=== PATIENT | female | born 1980 | race Caucasian/White ===

== ENCOUNTER 2016-09-16 14:55 | Emergency (ER) | payer OTHER ==
[~2016-09-16] VITALS: Ht 162.6 cm; Wt 109.1 kg
[~2016-09-16 14:55] MED LIST: ALBU2.5V4 INHALATION; ALBU8.5H2 IH; Albuterol NEB; CALC500T9 PO; LORA10CA PO; MELA1TAB16 PO; MONT10TA20 PO; PANT40TA2 PO; PRE10 PO; SERT50TA9 PO
[2016-09-16] MEDS ORDERED: Albuterol-Ipratropium 3 mL Inhalation Solution ONE (15:00)
[2016-09-16 15:06] VITALS: BP 144/79; PULSE 96; RESP 32; O2SAT 100
--- NOTE | 2016-09-16 15:07 | ED.REPORT ---
HPI-Dyspnea / Wheezing Date of Service Sep 16, 2016 ED Provider: Dr. Pate Pt is a 36 y/o female with a history of asthma who presents to the ED c/o SOB onset 2 days ago. Pt also experiences rhinorrhea and "drainage" to her lungs which she attributes to a recent cold. Pt denies diarrhea, but vomited before arrival at the ED. She has been to the ED 8 times over the past 1.5 years for similar symptoms, noting they have become less frequent recently. She received a breathing treatment prior to interview and believes that it along with oral steroids could work as a treatment today. The pt's PCP is Dr. Russ, however she has also been seeing @ [facility] in [place]. Nursing Notes Stated Complaint: CAN'T BREATH, ASTHMA ATTACK Chief Complaint: Respiratory Distress Nursing Notes Reviewed: Yes Allergies: Coded Allergies: latex (Verified Allergy, Unknown, 03/31/16) penicillin G (Verified Allergy, Unknown, 03/31/16) Uncoded Allergies: Cillins (Allergy, Unknown, 03/04/15) Scheduled Loratadine (Claritin) 10 Mg Capsule 10 MG PO DAILY Montelukast (Singulair) 10 Mg Tablet 10 MG PO DAILY Pantoprazole DR (Protonix) 40 Mg Tablet 40 MG PO DAILY Prednisone (PredniSONE) 10 Mg Tablet 40 MG PO DAILY Prednisone (PredniSONE) 20 Mg Tablet 20 MG PO DAILY prednisone 20mg tabs /8 60mg 09/18,10 40mg 09/20,12 20mg 09/22,14,15 10mg Sertraline HCl (Sertraline) 50 Mg Tablet 50 MG PO DAILY Scheduled PRN ([Albuterol]) 2.5 MG/3 ML NEBU 2.5 MG NEB Q2 PRN PRN For Shortness of Breath Albuterol HFA (Proair HFA) 8.5 Gm Hfa.aer.ad 2 PUFFS IH Q4 PRN PRN For Wheezing Albuterol Neb Soln (Albuterol Neb Soln) 2.5 Mg/3 Ml Vial.neb 2.5 MG INHALATION Q4H PRN PRN For Shortness of Breath Calcium Carbonate (Tums) 500 Mg Tab.chew 500 MG PO PRN PRN PRN For Dyspepsia or Heartburn Melatonin/Pyridoxine (Melatonin 5 mg Tablet) 1 Each Tablet 1 EACH PO HS PRN PRN For Insomnia General Time Seen by MD: 15:06 Chief Complaint Shortness of breath Hx Obtained From: Patient Arrived By: Walk-in Sudden in Onset?: No Onset Occurred: 2 days ago Context of Onset: Asthma attack Symptom Duration: Since onset Severity: Current: No pain currently Severity: Maximum: No pain Recent Healthcare: Previous diagnosis Similar Sx Previous: Yes (claims to have been to ED for breathing problems 8 times last 1.5 years) Past Medical History Past Medical History Notes: PCP: Dr. Linton Past Medical History Psoriasis Reports: Asthma, GERD Past Surgical History Eye surgery at age 4 Family History non-contributory Smoking History Never Smoker Social History Alcohol Use: Denies alcohol use Drug Use: THC Ambulatory Status Independent Review of Systems Respiratory: Reports: Shortness of breath, Wheezing Allergy / Immune: Reports: Rhinorrhea Complete sys rev & neg: except as marked. GI: Reports: Vomiting (vomit before arrival at ED), Denies: Diarrhea Physical Exam Initial Vital Signs Vital Signs (First) Date Time Temp Pulse Resp B/P Pulse Ox O2 Delivery O2 Flow Rate FiO2 09/16/16 15:06 37.7 96 32 144/79 100 Room Air Initial VS: Reviewed, Vital signs abnormal Head / Eyes: Atraumatic, Normocephalic, PERRL Extremities: Vascular intact, Neuro intact, No swelling, No tenderness Skin: Warm, Dry, No cyanosis Neurologic: Alert, Oriented, Nonfocal Psychiatric: Mood/affect normal, Behavior normal, Normal thought content General/Constitutional: Awake, Alert, Cooperative, Not toxic appearing Distress / Hydration: Positive: Distress moderate Neck: Atraumatic, Supple, Full range of motion Respiratory / Chest: Atraumatic, No chest tenderness, No chest wall deformity Resp Distress / Stridor: Positive: Resp distress moderate Audible wheezing 5 word sentences Using accessory muscles - supraclavicular Diffuse wheezing throughout Cardiovascular: Heart rate NL, Regular rhythm, Heart sounds NL, Peripheral circulation NL Re-Eval/Medical Decision Re-Evaluation/Progress : Time of Eval: 16:07 Re-Evaluation/Progress Note: Pt rechecked. Breath sound very improved. Very mild wheezing. She feels much better and would like to go home. Counseled Regarding: Diagnosis, Lab results, Need for follow-up, When/why to return to ED Discharge & Departure Impression: Primary Impression: Asthma without status asthmaticus with acute exacerbation Ruled Out: Influenza Disposition: Home Discharge Condition All VS Reviewed: Yes Condition: Stable You turned around quickly today with 20mg of albuterol neb and 2 doses of atrovent. Your influenza screen was negative. This is likely a simple cold. You also go a shot of solu-medrol (steroid) and will need to finish a prednisone taper. DO continue all the current asthma treatments If you are worse, please return to the ER Thank you for letting us take care of you today. And thanks for getting better so quickly! prednisone 20mg tabs 09/17 60mg 09/18,10 40mg 09/20,12 20mg 09/22,14,15 10mg Referrals: Myles Russ MD (PCP) Scribe Attestation Portions of this note were transcribed by [Chris Tao and Bong Emmanuel ]. I, [ Dr. Pate. ] personally performed the history, physical exam and medical decision-making; I reviewed and confirmed the accuracy of the information in the transcribed note. Signed by: [Chris Tao] and Mayank Villa, [09/16/15] and [[id number]]. copies to: Myles Russ MD, Shawna L MD Sep 16, 2016 15:07 Chris Tao Sep 16, 2016 15:14 BONG EMMANUEL Sep 16, 2016 16:35
[2016-09-16 15:12] VITALS: PULSE 109; RESP 26; O2SAT 95
[2016-09-16] MEDS ORDERED: MethylprednisoLONE Sodium Succinate 62.5 mg/mL 2 mL Inj IM ONE (15:30)
[2016-09-16] MEDS ORDERED: Albuterol-Ipratropium 3 mL Inhalation Solution NEB ONE (15:30)
[2016-09-16] MEDS ORDERED: Albuterol 2.5 mg/3 mL Inhalation Solution NEB ONE (15:30)
[2016-09-16 15:39] VITALS: PULSE 110; RESP 22; O2SAT 93
[2016-09-16 16:23] VITALS: PULSE 117; RESP 20; O2SAT 96
[2016-09-16] MEDS ORDERED: PRE20 PO (16:31)
[2016-09-16] MEDS ORDERED: 0.9% Sodium Chloride 1,000 ML IV ONE (17:07)
[2016-09-16] MEDS ORDERED: Magnesium Sulf 2 Gm/50mL Water 2 GM in IV Premix 1 EACH IV ONE (17:10)
[2016-09-16 17:36] VITALS: RESP 16; O2SAT 89
== END 2016-09-16 17:36 | disposition home or self-care (01) ==
LOC: SED 14:55
DX: J45.901 Unspecified asthma with (acute) exacerbation (principal); R06.02 Shortness of breath; K21.9 Gastro-esophageal reflux disease without esophagitis; Z91.040 Latex allergy status; Z88.0 Allergy status to penicillin
CPT/HCPCS: 87070; 87205; 87804; 94640; 94664; 96372; 99284; J2930; J7613; J7620

== ENCOUNTER 2017-01-24 07:58 | Emergency (ER) | payer OTHER ==
[~2017-01-24] VITALS: Ht 162.6 cm; Wt 260.0 kg
[~2017-01-24 07:58] MED LIST changes: +PRE20 PO
[2017-01-24 08:07] VITALS: BP 162/112; PULSE 87; RESP 25; O2SAT 91
[2017-01-24] MEDS ORDERED: Albuterol-Ipratropium 3 mL Inhalation Solution ONE (08:12)
--- NOTE | 2017-01-24 08:24 | ED.REPORT ---
HPI-Dyspnea / Wheezing Date of Service January 24, 2017 ED Provider: Justyn Powell MD The patient is a 37 year old female w/ a hx of asthma and multiple ED visits for similar symptoms who presents to the ED due to an asthma exacerbation increasing in severity for the past 4 days. She c/o left sided thoracic pain. The pt has been vomiting and not able to keep any food down. She denies chest pain, fever, sore throat, and hematochezia. Nursing Notes Stated Complaint: POSSIBLE ASTHMA/NAUSEA Chief Complaint: Respiratory Complaints Nursing Notes Reviewed: Yes Allergies: Coded Allergies: latex (Verified Allergy, Unknown, 03/31/16) penicillin G (Verified Allergy, Unknown, 03/31/16) Uncoded Allergies: Cillins (Allergy, Unknown, 03/04/15) Scheduled Loratadine (Claritin) 10 Mg Capsule 10 MG PO DAILY Montelukast (Singulair) 10 Mg Tablet 10 MG PO DAILY Pantoprazole DR (Protonix) 40 Mg Tablet 40 MG PO DAILY Prednisone (PredniSONE) 10 Mg Tablet 40 MG PO DAILY Prednisone (PredniSONE) 20 Mg Tablet 20 MG PO DAILY prednisone 20mg tabs / 60mg 09/18,10 40mg 09/20,12 20mg 09/22,14,15 10mg Prednisone (PredniSONE) 20 Mg Tablet 60 MG PO DAILY Sertraline HCl (Sertraline) 50 Mg Tablet 50 MG PO DAILY Scheduled PRN ([Albuterol]) 2.5 MG/3 ML NEBU 2.5 MG NEB Q2 PRN PRN For Shortness of Breath Albuterol HFA (Proair HFA) 8.5 Gm Hfa.aer.ad 2 PUFFS IH Q4 PRN PRN For Wheezing Albuterol Neb Soln (Albuterol Neb Soln) 2.5 Mg/3 Ml Vial.neb 2.5 MG INHALATION Q4H PRN PRN For Shortness of Breath Albuterol Neb Soln (Albuterol Neb Soln) 2.5 Mg/3 Ml Vial.neb 2.5 MG INHALATION Q4H PRN PRN For Wheezing Calcium Carbonate (Tums) 500 Mg Tab.chew 500 MG PO PRN PRN PRN For Dyspepsia or Heartburn Melatonin/Pyridoxine (Melatonin 5 mg Tablet) 1 Each Tablet 1 EACH PO HS PRN PRN For Insomnia General Time Seen by MD: 08:19 Chief Complaint Asthma attack Hx Obtained From: Patient Arrived By: Walk-in Sudden in Onset?: Yes Onset Occurred: 4 days ago Symptom Duration: Since onset Severity: Current: No pain currently Recent Healthcare: No recent doctor visit, No recent hospitalization Similar Sx Previous: Yes Past Medical History Past Medical History Notes: PCP: Dr. Linton Past Medical History Psoriasis Reports: Asthma, GERD Past Surgical History Eye surgery at age 4 Family History non-contributory Smoking History Never Smoker Social History Alcohol Use: Denies alcohol use Drug Use: THC Other Social History: Local resident Ambulatory Status Independent Review of Systems Constitutional: Denies: Fever Ears / Nose / Throat: Denies: Sore throat Respiratory: Reports: Shortness of breath, Wheezing Cardiovascular: Denies: Chest pain Musculoskeletal: Reports: Thoracic pain Complete sys rev & neg: except as marked. GI: Reports: Vomiting, Denies: Hematochezia Physical Exam Initial Vital Signs Vital Signs (First) Date Time Temp Pulse Resp B/P Pulse Ox O2 Delivery O2 Flow Rate FiO2 01/24/17 08:07 36.2 87 25 162/112 91 Room Air 01/24/17 08:26 9 Initial VS: Reviewed Head / Eyes: Atraumatic, Normocephalic, PERRL Abdomen / GI: Soft, Non-tender, No guarding, No rebound, No distention Back: No CVA tenderness Extremities: Vascular intact, Neuro intact, No swelling, No tenderness Skin: Warm, Dry General/Constitutional: Awake, Alert, Cooperative Neck: Atraumatic, Supple, No meningismus Wheezing / Retractions: Positive: Wheezing mild (scattered) Cardiovascular: Heart rate NL, Regular rhythm, Heart sounds NL Interpretation & Diagnostics Lab Results Interpretation Result Diagram: 01/24/17 0844 01/24/17 0844 Test 01/24/17 08:44 01/24/17 08:58 White Blood Count 10.3th/mm3 (3.8-10.1) Red Blood Count 5.06mil/mm3 (3.90-5.20) Hemoglobin 12.3g/dL (12.0-15.6) Hematocrit 37.5% (35.0-46.0) Mean Corpuscular Volume 74.1fL (81-100) Mean Corpuscular Hemoglobin 24.3pg (27.0-35.0) Mean Corpuscular Hemoglobin Concent 32.8% (32.0-37.0) Red Cell Distribution Width 16.7% (12.3-15.4) Platelet Count 556bil/L (150-400) Neutrophils (%) (Auto) 74.7% (40-74) Lymphocytes (%) (Auto) 16.0% (14-46) Monocytes (%) (Auto) 3.8% (4-12) Eosinophils (%) (Auto) 4.9% (0-5) Basophils (%) (Auto) 0.4% (0-3) D-Dimer < 0.50mg/L FEU (<0.50) Sodium Level 138mEq/L (134-144) Potassium Level 4.3mEq/L (3.5-5.2) Chloride Level 100mEq/L (97-108) Carbon Dioxide Level 21mmol/L (18-29) Blood Urea Nitrogen 10mg/dL (6-20) Creatinine 0.70mg/dL (0.57-1.00) Estimat Glomerular Filtration Rate 136mL/min (>59) Glucose Level 106mg/dL (60-99) Calcium Level 9.6mg/dL (8.5-10.1) Magnesium Level 2.0mg/dL (1.6-2.6) Total Bilirubin 0.3mg/dL (0.0-1.2) Aspartate Amino Transf (AST/SGOT) 17U/L (0-50) Alanine Aminotransferase (ALT/SGPT) 10U/L (0-32) Alkaline Phosphatase 140U/L (25-150) Total Protein 8.2g/dL (6.4-8.4) Albumin 4.1g/dL (3.4-5.0) Hold Cruz Top Tube Received (Received) ECG Interpretation ECG Interpretation: no ST changes Time: 08:50 Interpreted by: ED physician Normal ECG Interpretation: Normal sinus rhythm (rate 75) X-Ray Chest Interpretation Chest Xray Interpretation: IMPRESSION: 1. No acute cardiopulmonary disease. Dictated by: Chance Whelan M.D. on 01/24/2017 at 8:52 Approved by: Chance Whelan M.D. on 01/24/2017 at 8:53 View: Portable Interpretation / Wet Read by: Interpret - Radiologist Re-Eval/Medical Decision Med Decision/Clinical Course 37-year-old female history of asthma presenting with shortness breath 4 days. On arrival with mild rest or distress. Her oxygen was in the low 90s. She was given steroids and albuterol nebulizers and her oxygen improved to mid 90s. She felt much better. Chest x-ray clear. He is stable. Vital signs stable. Patient will be discharged home with prednisone burst. Follow up with primary doctor. We provided her with a new nebulizer machine given hers was broken. Return precautions given. Re-Evaluation/Progress : Time of Eval: 09:30 Re-Evaluation/Progress Note: Pt rechecked. X-rays do not show any signs of pneumonia and labs are normal. Plan for discharge. F/U and RTER warnings given. Pt understands and agrees with plan. All questions addressed. Counseled Regarding: Diagnosis, Lab results, Need for follow-up, When/why to return to ED Discharge & Departure Impression: Primary Impression: Asthma exacerbation Disposition: Home Discharge Condition All VS Reviewed: Yes Condition: Stable Patient Instructions: Moderate and Severe Persistent Asthma (ED) Additional Instructions: I am sending you home with 5 days of steroids. Your x-rays do not show any signs of pneumonia and your labs are normal. Follow up with your primary care physician in 1-2 days. Return to the Emergency Department for any new or worsening symptoms including chest pain and difficulty breathing. We are always here to help! Referrals: Myles Russ MD (PCP) Scribe Attestation Portion of this note were transcribed by Cecilia Perkins. I, Dr. Powell, personally performed the history, physical exam, and medical decision-making: I reviewed and confirmed the accuracy for the information in the transcribed note. Signed by: kai Mckeon, 01/24/17 1000 copies to: Myles Russ MD, Ben M MD January 24, 2017 08:24 Cecilia Perkins January 24, 2017 08:38
[2017-01-24 08:26] VITALS: PULSE 78; RESP 20; O2SAT 100
[2017-01-24] MEDS ORDERED: MethylprednisoLONE Sodium Succinate 62.5 mg/mL 2 mL Inj IVPUSH ONE (08:35)
[2017-01-24] MEDS ORDERED: Albuterol-Ipratropium 3 mL Inhalation Solution NEB ONE (08:35)
[2017-01-24 08:48] LABS: BASOPHILS % (AUTO) 0.4 % (0-3); EOSINOPHILS % (AUTO) 4.9 % (0-5); MONOCYTES % (AUTO) 3.8 % (4-12); Mean Corpuscular Hemoglobin 24.3 pg (27.0-35.0); Mean Corpuscular Volume 74.1 fL (81-100); NEUTROPHILS % (AUTO) 74.7 % (40-74); Platelet Count 556 bil/L (150-400)
[2017-01-24 08:53] VITALS: BP 133/90; PULSE 117; RESP 16; O2SAT 95
--- NOTE | 2017-01-24 08:54 | DRSVH ---
PROCEDURE: X-RAY CHEST, TWO VIEWS ([id number]) INDICATIONS: Shortness of breath and asthma. TECHNIQUE: 2 views of the chest were acquired. COMPARISON: [facility], [place], XR CHEST 2VW, 02/19/2016, 23:45. FINDINGS: Surgical changes and devices: None. Lungs and pleura: No pleural effusions or pneumothorax. Lungs are clear. Mediastinum: Mediastinal contours are normal. Heart size is normal. Bones and chest wall: No suspicious bony abnormalities. Soft tissues appear unremarkable. IMPRESSION: 1. No acute cardiopulmonary disease. Dictated by: Chance Whelan M.D. on 01/24/2017 at 8:52 Approved by: Chance Whelan M.D. on 01/24/2017 at 8:53
[2017-01-24] MEDS ORDERED: PRE20 PO (09:40)
[2017-01-24 09:44] VITALS: BP 122/79; PULSE 75; RESP 22; O2SAT 93
[2017-01-24] MEDS ORDERED: ALBU2.5V4 INHALATION (09:59)
[2017-01-24 10:09] VITALS: BP 131/89; PULSE 75; RESP 22; O2SAT 93
[2017-01-25] MEDS ORDERED: CIPR-198 PO (09:46)
[2017-01-25] MEDS ORDERED: ONDA4TAB9 PO (09:46)
== END 2017-01-24 10:28 | disposition home or self-care (01) ==
LOC: SED 07:58
DX: J45.901 Unspecified asthma with (acute) exacerbation (principal); K21.9 Gastro-esophageal reflux disease without esophagitis; Z79.899 Other long term (current) drug therapy; Z91.040 Latex allergy status
CPT/HCPCS: 36415; 71020; 80053; 83735; 85025; 85378; 93005; 94664; 96374; 99285; J2930; J7620

== ENCOUNTER 2017-01-25 08:30 | Emergency (ER) | payer OTHER ==
[~2017-01-25] VITALS: Ht 162.6 cm; Wt 113.6 kg
[2017-01-25 08:37] VITALS: BP 144/100; PULSE 100; RESP 14; O2SAT 93
--- NOTE | 2017-01-25 08:47 | ED.REPORT ---
HPI-General Illness Date of Service January 25, 2017 ED Provider: Justyn Powell MD 37 year old female with a history of asthma presents to the ER complaining of a week of acute on chronic nausea and vomiting. Her most recent bout of vomiting was this morning in the shower. She also reports 15 lb weight loss in the past week, and persistent diarrhea, though she admits that this is chronic secondary to lactose intolerance. Patient denies fever, chills, hemoptysis, and dysuria. She was seen by me here in the ER yesterday for acute asthma exacerbation. Currently she reports that her asthma symptoms are resolved, her only complaint is nausea and vomiting. Nursing Notes Stated Complaint: SEVERE NAUSEA Chief Complaint: General Complaint Nursing Notes Reviewed: Yes Allergies: Coded Allergies: Penicillins (Verified Allergy, Unknown, unknown, 01/25/17) latex (Verified Allergy, Unknown, 03/31/16) Scheduled Ciprofloxacin (Ciprofloxacin) 500 Mg Tablet 500 MG PO BID Loratadine (Claritin) 10 Mg Capsule 10 MG PO DAILY Montelukast (Singulair) 10 Mg Tablet 10 MG PO DAILY Pantoprazole DR (Protonix) 40 Mg Tablet 40 MG PO DAILY Prednisone (PredniSONE) 10 Mg Tablet 40 MG PO DAILY Prednisone (PredniSONE) 20 Mg Tablet 20 MG PO DAILY prednisone 20mg tabs / 60mg 09/18,10 40mg 09/20,12 20mg /,14,15 10mg Prednisone (PredniSONE) 20 Mg Tablet 60 MG PO DAILY Sertraline HCl (Sertraline) 50 Mg Tablet 50 MG PO DAILY Scheduled PRN ([Albuterol]) 2.5 MG/3 ML NEBU 2.5 MG NEB Q2 PRN PRN For Shortness of Breath Albuterol HFA (Proair HFA) 8.5 Gm Hfa.aer.ad 2 PUFFS IH Q4 PRN PRN For Wheezing Albuterol Neb Soln (Albuterol Neb Soln) 2.5 Mg/3 Ml Vial.neb 2.5 MG INHALATION Q4H PRN PRN For Shortness of Breath Albuterol Neb Soln (Albuterol Neb Soln) 2.5 Mg/3 Ml Vial.neb 2.5 MG INHALATION Q4H PRN PRN For Wheezing Calcium Carbonate (Tums) 500 Mg Tab.chew 500 MG PO PRN PRN PRN For Dyspepsia or Heartburn Melatonin/Pyridoxine (Melatonin 5 mg Tablet) 1 Each Tablet 1 EACH PO HS PRN PRN For Insomnia Ondansetron ODT (Zofran ODT) 4 Mg Tablet 4 MG PO Q4H PRN PRN For Nausea General Time Seen by MD: 08:44 Chief Complaint Other (Nausea) Hx Obtained From: Patient Arrived By: Walk-in Sudden in Onset?: No Onset Occurred: 1 week ago Symptom Duration: Since onset Associated with: Denies: Cough, Fever Pertinent Negative: Pt denies other symptoms Past Medical History Past Medical History Notes: PCP: Dr. Linton Past Medical History Psoriasis Reports: Asthma, GERD Past Surgical History Eye surgery at age 4 Family History non-contributory Smoking History Never Smoker Social History Alcohol Use: Denies alcohol use Drug Use: THC Other Social History: Local resident Ambulatory Status Independent Review of Systems Full Review of Systems Constitutional: Reports: Recent wt loss (15lbs), Denies: Chills, Fever Respiratory: Denies: Hemoptysis GI: Reports: Diarrhea, Nausea, Vomiting, Denies: Abdominal pain, Bloody/tarry stool, Constipation, Hematemesis, Hematochezia Female: Denies: Dysuria, Complete sys rev & neg: except as marked. Physical Exam Vital Signs Vital Signs Date Time Temp Pulse Resp B/P Pulse Ox O2 Delivery O2 Flow Rate FiO2 01/25/17 10:12 36.6 92 135/59 98 Room Air 01/25/17 08:37 36.4 100 14 144/100 93 Room Air Initial VS: Reviewed Head / Eyes: Atraumatic, Normocephalic, PERRL Neck: Supple, Non-tender, Full range of motion Back: No CVA tenderness Extremities: Vascular intact, Neuro intact, No swelling, No tenderness Neurologic: Alert, Oriented, Nonfocal Psychiatric: Mood/affect normal, Behavior normal, Normal thought content General/Constitutional: Awake, Alert, Well developed Respiratory / Chest: Breath sounds NL, No respiratory distress, No rales, No rhonchi, No wheezing Cardiovascular: Heart rate NL, Regular rhythm, Heart sounds NL, Cap refill not delayed, Peripheral circulation NL Abdomen: Soft, Non-tender, No guarding, No rebound, No distention Interpretation & Diagnostics Lab Results Interpretation Result Diagram: 01/25/17 0902 01/25/17 0902 Test 01/25/17 08:55 01/25/17 09:02 Urine Color Dark yellow (YELLOW) Urine Appearance Hazy (CLEAR,HAZY) Urine pH 6.0 (5.0-8.0) Urine Specific [place] 1.030 (1.003-1.035) Urine Protein 100mg/dL (NEG,TRACE) Urine Glucose (UA) Negativemg/dL (NEGATIVE) Urine Ketones Tracemg/dL (NEGATIVE) Urine Occult Blood Negative (NEGATIVE) Urine Nitrite Negative (NEGATIVE) Urine Bilirubin Negative (NEGATIVE) Urine Urobilinogen Normalmg/dL (NORMAL) Urine Leukocyte Esterase Negative (NEGATIVE) Urine RBC 0-2/hpf (0-2) Urine WBC 6-10/hpf (0-5) Urine Epithelial Cells Occasional/hpf (NONE-MOD) Urine Crystals None seen (NONE SEEN) Urine Bacteria Moderate/hpf (NONE-FEW) Urine Hyaline Casts None/lpf (NONE) Urine Granular Casts None seen (NONE SEEN) Urine Waxy Casts None seen (NONE SEEN) Urine Red Blood Cell Casts None seen (NONE SEEN) Urine White Blood Cell Casts None seen (NONE SEEN) Urine Mucus Present (None Seen) Urine Trichomonas None seen (NONE SEEN) Urine Yeast None (NONE SEEN) Urinalysis Comment None Urine Culture Reflexed Indicated White Blood Count 13.9th/mm3 (3.8-10.1) Red Blood Count 5.05mil/mm3 (3.90-5.20) Hemoglobin 12.2g/dL (12.0-15.6) Hematocrit 37.3% (35.0-46.0) Mean Corpuscular Volume 73.9fL (81-100) Mean Corpuscular Hemoglobin 24.2pg (27.0-35.0) Mean Corpuscular Hemoglobin Concent 32.7% (32.0-37.0) Red Cell Distribution Width 17.2% (12.3-15.4) Platelet Count 584bil/L (150-400) Neutrophils (%) (Auto) 73.2% (40-74) Lymphocytes (%) (Auto) 17.9% (14-46) Monocytes (%) (Auto) 7.8% (4-12) Eosinophils (%) (Auto) 0.4% (0-5) Basophils (%) (Auto) 0.4% (0-3) Sodium Level 140mEq/L (134-144) Potassium Level 3.7mEq/L (3.5-5.2) Chloride Level 101mEq/L (97-108) Carbon Dioxide Level 21mmol/L (18-29) Blood Urea Nitrogen 14mg/dL (6-20) Creatinine 0.82mg/dL (0.57-1.00) Estimat Glomerular Filtration Rate 114mL/min (>59) Glucose Level 107mg/dL (60-99) Calcium Level 10.1mg/dL (8.5-10.1) Magnesium Level 2.0mg/dL (1.6-2.6) Total Bilirubin 0.3mg/dL (0.0-1.2) Aspartate Amino Transf (AST/SGOT) 17U/L (0-50) Alanine Aminotransferase (ALT/SGPT) 11U/L (0-32) Alkaline Phosphatase 141U/L (25-150) Total Protein 8.3g/dL (6.4-8.4) Albumin 4.4g/dL (3.4-5.0) Lipase 22U/L (13-60) Hold Cruz Top Tube Received (Received) Re-Eval/Medical Decision Med Decision/Clinical Course 37-year-old female history of asthma presenting with nausea and vomiting. She was diagnosed with asthma exacerbation yesterday. She denies any abdominal pain. Patient was given Zofran here and she felt much better. Vital signs stable. Labs are stable. She does have a UTI suggested on urine. He will be treated for UTI with ciprofloxacin. Return precautions given for signs symptoms pyelonephritis. Time of Eval: 09:43 Re-Evaluation/Progress Note: Discussed lab results and plan to discharge. Patient is amenable to the plan. Return precautions given. All other questions addressed. Counseled Regarding: Diagnosis, Lab results, Need for follow-up, When/why to return to ED Discharge & Departure Primary Impression: UTI (urinary tract infection) Disposition: Home Discharge Condition All VS Reviewed: Yes Condition: Stable Patient Instructions: Urinary Tract Infection in Women (DC) Additional Instructions: Your labs indicate that you have a urinary tract infection (UTI). Drink plenty of fluids. Take Zofran as prescribed for nausea. Take the prescribed ciprofloxacin as directed for 7 days. It is important that you complete the entire course of this antibiotic medication., even if you start to feel better. Return to the ER if you develop severe abdominal pain, fever, chills, pain with urination, blood in your urine, or any other concerning symptoms. Referrals: Myles Russ MD (PCP) Mayank Attestation Portions of this note were transcribed by Zan Fan. I, Dr. Powell, personally performed the history, physical exam and medical decision-making; I reviewed and confirmed the accuracy of the information in the transcribed note. Signed by: Mayank Rodriguez, 01/25/2017 at 09:46 copies to: Myles Russ MD, Ben M MD January 25, 2017 08:47 ZAN FAN January 25, 2017 08:55
[2017-01-25] MEDS ORDERED: 0.9% Sodium Chloride 1,000 ML IV ONE (08:51)
[2017-01-25] MEDS ORDERED: Ondansetron 2 mg/mL 2 mL Inj IVPUSH ONE (08:55)
[2017-01-25] MEDS ORDERED: Ondansetron 2 mg/mL 2 mL Inj IVPUSH PRN (08:55)
[2017-01-25 09:08] LABS: COLOR,URINE DARK YELLOW (YELLOW)
[2017-01-25 09:11] LABS: APPEARANCE,URINE HAZY (CLEAR,HAZY)
[2017-01-25 09:12] LABS: OCCULT BLOOD,URINE NEGATIVE (NEGATIVE); UROBILINOGEN,URINE NORMAL (NORMAL)
[2017-01-25 09:12] LABS: BASOPHILS % (AUTO) 0.4 % (0-3); EOSINOPHILS % (AUTO) 0.4 % (0-5); MONOCYTES % (AUTO) 7.8 % (4-12); Mean Corpuscular Hemoglobin 24.2 pg (27.0-35.0); Mean Corpuscular Volume 73.9 fL (81-100); NEUTROPHILS % (AUTO) 73.2 % (40-74); Platelet Count 584 bil/L (150-400)
[2017-01-25] MEDS ORDERED: ONDA4TAB9 PO (09:46)
[2017-01-25] MEDS ORDERED: CIPR-198 PO (09:46)
[2017-01-25 10:12] VITALS: BP 135/59; PULSE 92; O2SAT 98
== END 2017-01-25 10:13 | disposition home or self-care (01) ==
LOC: SED 08:30
DX: N39.0 Urinary tract infection, site not specified (principal)
CPT/HCPCS: 36415; 80053; 81000; 81025; 83690; 83735; 85025; 87086; 87088; 87147; 96374; 99284; J2405; J7030